=== PATIENT | male | born 1985 | race Caucasian/White ===

== ENCOUNTER 2018-04-15 12:01 | Emergency (ER) | payer OTHER ==
[2018-04-15] MEDS ORDERED: SODIUM CHLORIDE 1,000 ML IV STA (12:05)
[2018-04-15] MEDS ORDERED: KETOROLAC TROMETHAMINE 30 MG/1 ML VIAL IVPUSH ONE (12:05)
--- NOTE | 2018-04-15 12:05 | PDOC ---
History of Present Illness - General Chief Complaint: Pain, Acute Stated Complaint: LEFT FLANK PAIN Time Seen by Provider: 04/15/18 12:04 History Source: Patient Exam Limitations: No Limitations - History of Present Illness Initial Comments: 04/15/18 12:49 Mr Markham is a 32 yo M who presents to the ER with a complaint of severe left flank pain Symptoms began just prior to arrival in the ER No fevers or chills No hematuria No dysuria (+) nausea No vomiting Pt has had pain like this in the past PMH: denies PSH: anal fistula repair Meds: denies ALL: NKDA Social: denies drug or cigarette use FH: Non contributory GENERAL/CONSTITUTIONAL: No: fever, chills, weakness, loss of appetite. HEAD, EYES, EARS, NOSE AND THROAT: No: change in vision, ear pain, discharge, sore throat, throat swelling. CARDIOVASCULAR: No: chest pain, lightheadedness, palpitations, syncope RESPIRATORY: No: cough, shortness of breath, wheezing, hemoptysis, stridor. GASTROINTESTINAL: No: nausea, vomiting, diarrhea, abdominal cramping, rectal bleeding, constipation. GENITOURINARY: No: dysuria, hematuria, frequency, urgency, flank pain. MUSCULOSKELETAL: Yes: left flank pain No: neck pain, joint pain, muscle swelling or pain SKIN: No: lesions, pallor, rash or easy bruising. NEUROLOGIC: No: headache, vertigo, paresthesias, weakness ENDOCRINE: No: unexplained weight gain or loss HEMATOLOGIC/LYMPHATIC: No: anemia, easy bleeding, swelling nodes. GENERAL: The patient is in severe pain, can not sit on stretcher, pt pacing. HEAD: Normal EYES: PERRLA, EOMI, sclera anicteric, conjunctiva clear. ENT: Ears normal, nares patent, oropharynx clear without exudates. Moist mucous membranes. NECK: Normal range of motion, supple without lymphadenopathy, JVD, or masses. LUNGS: Breath sounds equal, clear to auscultation bilaterally. No wheezes, and no crackles. HEART:Regular rate and rhythm, normal S1 and S2 without murmur, rub or gallop. ABDOMEN: Soft, nontender, No guarding, no rebound. No masses palpable. EXTREMITIES: Normal range of motion NEUROLOGICAL: Cranial nerves II through XII grossly intact. Normal speech. No focal neurological deficits. MUSCULOSKELETAL: No CVA tenderness SKIN: Warm, Dry, normal turgor, no rashes or lesions noted. 04/15/18 12:52 Past History - Past Medical History Allergies/Adverse Reactions: Allergies Allergy/AdvReac Type Severity Reaction Status Date / Time No Known Allergies Allergy Unverified 04/15/18 12:02 Home Medications: Ambulatory Orders Oxycodone HCl/Acetaminophen [Percocet 5-325 mg Tablet -] 1 tab PO Q6H PRN #16 tablet MDD 4 04/15/18 Tamsulosin HCl [Flomax] 0.4 mg PO HS #10 capsule 04/15/18 ED Treatment Course - LABORATORY CBC & Chemistry Diagram: 04/15/18 12:22 04/15/18 12:22 Medical Decision Making - Medical Decision Making 04/15/18 12:51 Left flank pain Most likely kidney stone Labs sent UA sent Pt give Toradol with no improvement in pain Morphine ordered 04/15/18 12:52 Laboratory Tests 04/15/18 04/15/18 04/15/18 12:09 12:22 12:22 WBC 7.3 Hgb 15.1 Hct 44.9 Plt Count 449 H BUN 16 Creatinine 1.1 Urine Blood 3+ H Urine Nitrite Negative Ur Leukocyte Esterase Negative US ordered 04/15/18 14:32 Laboratory Tests 04/15/18 04/15/18 12:09 12:22 BUN 16 Creatinine 1.1 Urine Blood 3+ H Urine Nitrite Negative Ur Leukocyte Esterase Negative Urine RBC >100 Urine WBC 0-2 04/15/18 16:29 Left mid ureter 5.5 x 5 cm stone, hydro Case reviewed with Dr. Moseley He will schedule this patient for Lithotrypsy on 04/17 Pt will try to manage pain at home until then NO NSAIDS AT ALL PRIOR TO PROCEDURE Clinical Impression: ureterolithiasis, initial presentation *DC/Admit/Observation/Transfer Diagnosis at time of Disposition: Kidney stone on left side - Discharge Dispostion Disposition: HOME Condition at time of disposition: Stable Decision to Admit order: No - Prescriptions Prescriptions: Oxycodone HCl/Acetaminophen [Percocet 5-325 mg Tablet -] 1 tab PO Q6H PRN #16 tablet MDD 4 PRN Reason: Severe Pain Tamsulosin HCl [Flomax] 0.4 mg PO HS #10 capsule - Referrals Referrals: Gerry Moseley MD [Staff Physician] - - Patient Instructions Printed Discharge Instructions: Kidney Stones -- Adult, DI for Kidney Stones Additional Instructions: Mr Markham Thank you for coming to the ER today Please take medications as prescribed Please monitor for fevers and chills Please be sure to follow up with Urologist as soon as possible - Post Discharge Activity
[2018-04-15] MEDS ORDERED: KETOROLAC TROMETHAMINE 30 MG/1 ML VIAL ONE (12:14)
[2018-04-15 12:16] VITALS: TEMP 98.6; BMI 26.4
[2018-04-15 12:18] LABS: PH,URINE 6.5 (4.5-8); URINE APPEARANCE Clear; URINE BILIRUBIN Negative (NEGATIVE); URINE GLUCOSE (UA) Negative (NEGATIVE); URINE KETONE Negative (NEGATIVE); URINE LEUK ESTERASE Negative (NEGATIVE); URINE NITRITE Negative (NEGATIVE); URINE PROTEIN Trace (NEGATIVE); URINE UROBILINOGEN 0.2 (0.2-1.0)
[2018-04-15 12:34] LABS: BASO % 1.3 % (0-2.0); EOS % 1.9 % (0-4.5); HEMATOCRIT 44.9 % (35.4-49); HEMOGLOBIN 15.1 GM/dl (11.7-16.9); LYMPH % 36.6 % (8-40); MCH 28.9 pg (25.7-33.7); MCHC 33.8 g/dl (32.0-35.9); MEAN CELL VOLUME 85.5 fl (80-96); MEAN PLT VOLUME 6.6 fl (7.5-11.1); MONO % 6.8 % (3.8-10.2); NEUT % 53.4 % (42.8-82.8); PLATELET COUNT 449 K/MM3 (134-434); RBC 5.24 M/mm3 (4.00-5.60); RDW 12.3 % (11.9-15.9); WHITE BLOOD COUNT 7.3 K/mm3 (4.0-10.8)
[2018-04-15 12:34] LABS: URINE COLOR YELLOW
[2018-04-15 12:42] LABS: ALBUMIN 4.5 g/dl (3.5-5.0); ALK PHOS 72 U/L (32-92); ANION GAP 7 (8-16); BLOOD UREA NITROGEN 16 mg/dl (7-18); CALCIUM 9.2 mg/dl (8.4-10.2); CHLORIDE 103 mmol/L (98-107); CO2 25 mmol/L (22-28); CREATININE 1.1 mg/dl (0.6-1.3); GLUCOSE,RANDOM 120 mg/dl (74-106); POTASSIUM 3.7 mmol/L (3.5-5.1); SGOT/AST 25 U/L (10-42); SGPT/ALT 33 U/L (10-40); SODIUM 135 mmol/L (136-145); TOT PROT 8.1 g/dl (6.4-8.3)
[2018-04-15 12:43] LABS: BILIRUBIN,TOTAL < 0.5 mg/dl (0.2-1.0)
[2018-04-15] MEDS ORDERED: morphine SULFATE 4 MG/ML VIAL IVPUSH ONE (12:43)
[2018-04-15] MEDS ORDERED: morphine SULFATE 4 MG/ML VIAL ONE ×2 (12:47→15:37)
[2018-04-15 14:02] LABS: URINE RBC >100 /hpf (0-3); URINE WBC 0-2 (0-2)
[2018-04-15] MEDS ORDERED: morphine CARPU-JECT 4 MG/1 ML DISP.SYRIN IVPUSH ONE (15:33)
[2018-04-15 15:53] VITALS: BP 144/78; PULSE 72
== END 2018-04-15 16:45 | disposition home or self-care (01) ==
LOC: FER 12:01
PROC: 3E0333Z Introduction of Anti-inflammatory into Peripheral Vein, Percutaneous Approach (ICD-10-PCS; principal; 2018-04-15)
PROC: 3E033NZ Introduction of Analgesics, Hypnotics, Sedatives into Peripheral Vein, Percutaneous Approach (ICD-10-PCS; 2018-04-15)
PROC: 3E0337Z Introduction of Electrolytic and Water Balance Substance into Peripheral Vein, Percutaneous Approach (ICD-10-PCS; 2018-04-15)
DX: N20.0 Calculus of kidney (principal)
CPT/HCPCS: 36415; 74176; 80053; 81003; 81015; 85025; 87086; 99282-25; J7030